=== PATIENT | male | born 1965 | race Caucasian/White ===

== ENCOUNTER → 2023-10-17 08:14 | Outpatient (REF) | payer OTHER, SELFPAY | LOC: HWRCS 08:14 | PROVIDERS: ATTENDING PHYSICIAN Nuclear Medicine Nuclear Cardiology; FAMILY PHYSICIAN Physician Assistant | DX: I10 Essential (primary) hypertension (principal); Z95.2 Presence of prosthetic heart valve; I50.33 Acute on chronic diastolic (congestive) heart failure | CPT/HCPCS: 93306 ==